=== PATIENT | female | born 1955 | race American Indian/Alaskan Native ===

== ENCOUNTER 2019-04-26 08:23 | Emergency (ER) | payer MEDICARE ==
[2019-04-26] MEDS ORDERED: ONDANSETRON 4 MG/2 ML INJ IV ONE (08:43)
[2019-04-26] MEDS ORDERED: SODIUM CHLORIDE 0.9% 1000 ML 1,000 ML IV ONE (08:43)
[2019-04-26] MEDS ORDERED: MORPHINE 4 MG/1 ML INJ IV ONE (08:43)
[2019-04-26] MEDS ORDERED: FAMOTIDINE 20 MG/2 ML INJ IV ONE (08:43)
--- NOTE | 2019-04-26 08:47 | Emergency Department Report ---
ED N/V/D HPI - General Chief complaint: Nausea/Vomiting/Diarrhea Stated complaint: NAUSEA/VOMITIMG Time Seen by Provider: 04/26/19 08:27 Source: EMS Mode of arrival: Stretcher Limitations: No Limitations - History of Present Illness Initial comments: 63-year-old female the past medical history of possible Crohn's disease and arthritis presents to the hospital complaining of nausea, vomiting, diarrhea, epigastric pain since 6 PM yesterday. Patient states she has a history of frequent episodes of the same over a 10 year period that occur every 2-3 weeks. The last few months patient states she hasn't had any GI symptoms until last night. Her workup in the past suggested that she might have possible Crohn's the patient is unsure if this is a definitive diagnosis. She denies melena, hematochezia, hematemesis, or fever. Previous surgical history includes hysterectomy. - Related Data Home Medications Medication Instructions Recorded Confirmed Last Taken Progesterone 04/26/19 04/24/19 Previous Rx's Medication Instructions Recorded Last Taken Type Amlodipine Besylate [Norvasc] 5 mg PO DAILY #30 tablet 04/26/19 Unknown Rx Famotidine [Pepcid] 20 mg PO BID #30 tablet 04/26/19 Unknown Rx Ondansetron [Zofran Odt] 4 mg PO Q8HR PRN #20 tab.rapdis 04/26/19 Unknown Rx traMADoL [Ultram 50 MG tab] 50 mg PO Q6HR PRN #16 tablet 04/26/19 Unknown Rx Allergies Allergy/AdvReac Type Severity Reaction Status Date / Time No Known Allergies Allergy Verified 04/26/19 08:52 ED Review of Systems ROS: Stated complaint: NAUSEA/VOMITIMG Other details as noted in HPI Comment: All other systems reviewed and negative ED Past Medical Hx - Past Medical History Previous Medical History?: Yes Hx Psychiatric Treatment: Yes (Anxiety) Additional medical history: Cronh's disease - Surgical History Past Surgical History?: Yes Additional Surgical History: Hysterectomy - Medications Home Medications: Home Medications Medication Instructions Recorded Confirmed Last Taken Type Amlodipine Besylate [Norvasc] 5 mg PO DAILY #30 tablet 04/26/19 Unknown Rx Famotidine [Pepcid] 20 mg PO BID #30 tablet 04/26/19 Unknown Rx Ondansetron [Zofran Odt] 4 mg PO Q8HR PRN #20 tab.rapdis 04/26/19 Unknown Rx Progesterone 04/26/19 04/24/19 History traMADoL [Ultram 50 MG tab] 50 mg PO Q6HR PRN #16 tablet 04/26/19 Unknown Rx ED Physical Exam - General Limitations: No Limitations - Other Other exam information: General: No acute distress Head: Atraumatic Eyes: normal appearance ENT: Moist mucous membranes Neck: Normal appearance, no midline tenderness Chest: Clear to auscultation bilaterally CV: Regular rate and rhythm Abdomen: Soft, normal bowel sounds, mild epigastric tenderness, nondistended, no rebound or guarding Back: Normal inspection Extremity: Normal inspection infection, full range of motion Neuro: Alert O x 3, no facial asymmetry, speech clear, no gross motor sensory deficit Psych: Appropriate behavior Skin: No rash ED Course Vital Signs 04/26/19 04/26/19 04/26/19 08:40 09:00 09:30 Temperature 98.4 F Pulse Rate 64 56 L 57 L Respiratory 13 19 18 Rate Blood Pressure 174/95 194/92 Blood Pressure 162/114 [Right] O2 Sat by Pulse 100 100 Oximetry 04/26/19 04/26/19 04/26/19 10:00 10:30 11:00 Temperature Pulse Rate 52 L 61 55 L Respiratory 18 9 L 12 Rate Blood Pressure 202/117 198/114 192/112 Blood Pressure [Right] O2 Sat by Pulse 97 95 100 Oximetry 04/26/19 04/26/19 04/26/19 11:17 11:30 11:49 Temperature Pulse Rate 56 L 77 78 Respiratory 12 Rate Blood Pressure 192/112 134/88 Blood Pressure 124/77 [Right] O2 Sat by Pulse 97 98 Oximetry 04/26/19 04/26/19 12:00 12:30 Temperature Pulse Rate 84 95 H Respiratory 18 16 Rate Blood Pressure 115/69 108/75 Blood Pressure [Right] O2 Sat by Pulse 100 Oximetry ED Medical Decision Making - Lab Data Result diagrams: 04/26/19 08:49 04/26/19 08:49 Lab Results 04/26/19 04/26/19 04/26/19 Range/Units 08:49 08:49 08:49 WBC 8.0 (4.5-11.0) K/mm3 RBC 4.41 (3.65-5.03) M/mm3 Hgb 14.1 (10.1-14.3) gm/dl Hct 42.3 (30.3-42.9) % MCV 96 (79-97) fl MCH 32 (28-32) pg MCHC 34 (30-34) % RDW 13.7 (13.2-15.2) % Plt Count 199 (140-440) K/mm3 Lymph % (Auto) 6.7 L (13.4-35.0) % Rich % (Auto) 3.2 (0.0-7.3) % Eos % (Auto) 0.1 (0.0-4.3) % Baso % (Auto) 0.4 (0.0-1.8) % Lymph # 0.5 L (1.2-5.4) K/mm3 Rich # 0.3 (0.0-0.8) K/mm3 Eos # 0.0 (0.0-0.4) K/mm3 Baso # 0.0 (0.0-0.1) K/mm3 Seg Neutrophils % 89.6 H (40.0-70.0) % Seg Neutrophils # 7.2 (1.8-7.7) K/mm3 Sodium 142 (137-145) mmol/L Potassium 3.4 L (3.6-5.0) mmol/L Chloride 101.6 (98-107) mmol/L Carbon Dioxide 20 L (22-30) mmol/L Anion Gap 24 mmol/L BUN 12 (7-17) mg/dL Creatinine 0.9 (0.7-1.2) mg/dL Estimated GFR > 60 ml/min BUN/Creatinine Ratio 13 % Glucose 117 H (65-100) mg/dL Calcium 9.5 (8.4-10.2) mg/dL Magnesium 2.00 (1.7-2.3) mg/dL Total Bilirubin 0.40 (0.1-1.2) mg/dL AST 15 (5-40) units/L ALT 9 (7-56) units/L Alkaline Phosphatase 61 (35-129) units/L Troponin T (0.00-0.029) ng/mL Total Protein 8.4 H (6.3-8.2) g/dL Albumin 4.6 (3.9-5) g/dL Albumin/Globulin Ratio 1.2 % Lipase 21 (13-60) units/L Urine Color (Yellow) Urine Turbidity (Clear) Urine pH (5.0-7.0) Ur Specific [place] (1.003-1.030) Urine Protein (Negative) mg/dL Urine Glucose (UA) (Negative) mg/dL Urine Ketones (Negative) mg/dL Urine Blood (Negative) Urine Nitrite (Negative) Urine Bilirubin (Negative) Urine Urobilinogen (<2.0) mg/dL Ur Leukocyte Esterase (Negative) Urine WBC (Auto) (0.0-6.0) /HPF Urine RBC (Auto) (0.0-6.0) /HPF U Epithel Cells (Auto) (0-13.0) /HPF Amorphous Crystals Urine Mucus /HPF 04/26/19 04/26/19 Range/Units 09:45 13:48 WBC (4.5-11.0) K/mm3 RBC (3.65-5.03) M/mm3 Hgb (10.1-14.3) gm/dl Hct (30.3-42.9) % MCV (79-97) fl MCH (28-32) pg MCHC (30-34) % RDW (13.2-15.2) % Plt Count (140-440) K/mm3 Lymph % (Auto) (13.4-35.0) % Rich % (Auto) (0.0-7.3) % Eos % (Auto) (0.0-4.3) % Baso % (Auto) (0.0-1.8) % Lymph # (1.2-5.4) K/mm3 Rich # (0.0-0.8) K/mm3 Eos # (0.0-0.4) K/mm3 Baso # (0.0-0.1) K/mm3 Seg Neutrophils % (40.0-70.0) % Seg Neutrophils # (1.8-7.7) K/mm3 Sodium (137-145) mmol/L Potassium (3.6-5.0) mmol/L Chloride (98-107) mmol/L Carbon Dioxide (22-30) mmol/L Anion Gap mmol/L BUN (7-17) mg/dL Creatinine (0.7-1.2) mg/dL Estimated GFR ml/min BUN/Creatinine Ratio % Glucose (65-100) mg/dL Calcium (8.4-10.2) mg/dL Magnesium (1.7-2.3) mg/dL Total Bilirubin (0.1-1.2) mg/dL AST (5-40) units/L ALT (7-56) units/L Alkaline Phosphatase (35-129) units/L Troponin T < 0.010 (0.00-0.029) ng/mL Total Protein (6.3-8.2) g/dL Albumin (3.9-5) g/dL Albumin/Globulin Ratio % Lipase (13-60) units/L Urine Color Yellow (Yellow) Urine Turbidity Slightly-cloudy (Clear) Urine pH 9.0 H (5.0-7.0) Ur Specific [place] 1.015 (1.003-1.030) Urine Protein <15 mg/dl (Negative) mg/dL Urine Glucose (UA) Neg (Negative) mg/dL Urine Ketones Neg (Negative) mg/dL Urine Blood Neg (Negative) Urine Nitrite Neg (Negative) Urine Bilirubin Neg (Negative) Urine Urobilinogen < 2.0 (<2.0) mg/dL Ur Leukocyte Esterase Neg (Negative) Urine WBC (Auto) 2.0 (0.0-6.0) /HPF Urine RBC (Auto) 1.0 (0.0-6.0) /HPF U Epithel Cells (Auto) 1.0 (0-13.0) /HPF Amorphous Crystals Few Urine Mucus Few /HPF - EKG Data -: EKG Interpreted by Tx EKG shows normal: sinus rhythm, ST-T waves (t inv v4-v5) Rate: normal (67) - EKG Data When compared to previous EKG there are: previous EKG unavailable - Radiology Data Radiology results: report reviewed CT abdomen and pelvis with IV contrast. No acute abdominal or pelvic abnormality. Small left ovarian cyst. Nonspecific mild groundglass opacity in the right middle and lower lobe. - Medical Decision Making Symptoms improved ED treatment including pain medication, nausea medication and IV fluids. Patient given by mouth potassium for mild hypokalemia and tolerated by mouth intake. There are some nonspecific T-wave abnormalities identified on EKG without previous for comparison. Troponin negative. Patient noted to have elevated blood pressure but denies previous history but states when she is in pain intensity be elevated. Patient did require hydralazine for blood pressure reduction in the ED. She is started on Norvasc 5 mg in addition to medication for symptomatic treatment of nausea, vomiting, and diarrhea which appears to be recurrent. Outpatient follow-up with PMD and GI advised - Differential Diagnosis gastroenteritis, diverticulitis, appendicitis, inflammatory bowel disease Critical Care Time: No Critical care attestation.: If time is entered above; I have spent that time in minutes in the direct care of this critically ill patient, excluding procedure time. ED Disposition Clinical Impression: Gastroenteritis, HTN (hypertension) Disposition: TO HOME OR SELFCARE Is pt being admited?: No Does the pt Need Aspirin: No Condition: Stable Instructions: Gastroenteritis (ED), Hypertension (ED) Additional Instructions: Take the medication as prescribed. Follow-up with your doctor or doctor/clinic provided. Return if symptoms worsen as indicated by your discharge instructions. Prescriptions: Amlodipine Besylate [Norvasc] 5 mg PO DAILY #30 tablet Famotidine [Pepcid] 20 mg PO BID #30 tablet traMADoL [Ultram 50 MG tab] 50 mg PO Q6HR PRN #16 tablet PRN Reason: Pain Ondansetron [Zofran Odt] 4 mg PO Q8HR PRN #20 tab.rapdis PRN Reason: Nausea And Vomiting Referrals: PRIMARY CAREMD [Primary Care Provider] - 3-5 Days DAVON WILLIAM MD [Staff Physician] - 3-5 Days [facility] [Provider Group] - 3-5 Days [facility] [Provider Group] - 3-5 Days Time of Disposition: 15:05
[2019-04-26 09:27] LABS: Basophils % (Auto) 0.4 % (0.0-1.8); Eosinophils % (Auto) 0.1 % (0.0-4.3); Hematocrit 42.3 % (30.3-42.9); Hemoglobin 14.1 gm/dl (10.1-14.3); Lymphocytes # (Auto) 0.5 K/mm3 (1.2-5.4); Lymphocytes % (Auto) 6.7 % (13.4-35.0); Mean Corpuscular HGB Conc 34 % (30-34); Mean Corpuscular Volume 96 fl (79-97); Monocytes # (Auto) 0.3 K/mm3 (0.0-0.8); Monocytes % (Auto) 3.2 % (0.0-7.3); Red Blood Count 4.41 M/mm3 (3.65-5.03); Red Cell Distribution Width 13.7 % (13.2-15.2)
[2019-04-26 09:33] LABS: Platelet Count 199 K/mm3 (140-440)
[2019-04-26 09:54] LABS: Alanine Aminotransferase 9 units/L (7-56); Albumin 4.6 g/dL (3.9-5); BUN/Creatinine Ratio 13; Blood Urea Nitrogen 12 mg/dL (7-17); Calcium 9.5 mg/dL (8.4-10.2); Hemolysis Index 9
[2019-04-26 10:28] LABS: Amorphous Crystals,Urine Few; Bilirubin,Urine NEG (Negative); Blood,Urine NEG (Negative); Color,Urine Yellow (Yellow); Mucus,Urine FEW /HPF; Protein,Urine <15 mg/dL mg/dL (Negative); Urobilinogen,Urine < 2.0 mg/dL (<2.0)
[2019-04-26] MEDS ORDERED: hydrALAZINE 20 MG/1 ML INJ IV ONE (11:12)
--- NOTE | 2019-04-26 11:31 | Cat Scan Report ---
CT abdomen pelvis w con INDICATION / CLINICAL INFORMATION: epigastric pain n,v,d chrons. TECHNIQUE: All CT scans at this location are performed using CT dose reduction for ALARA by means of automated e xposure control. COMPARISON: None available. FINDINGS: Mild patchy groundglass opacities are identified in the right lower lobe and right middle lobe. ABDOMEN: Multiple hepatic cysts. The gallbladder, spleen and pancreas are normal. No hydronephrosis. Small renal cysts are identified bilaterally. No evidence of aortoiliac aneurysm. No retroperitoneal adenopathy. Adrenal glands are normal. Pelvis: The appendix is normal. No acute inflammatory changes or dependent fluid collections are identified in the pelvis. No acute colon abnormality. A 2 cm left ovarian cyst is identified. Degenerative changes are seen at the L5-S1 level. IMPRESSION: 1. No acute abdominal or pelvic abnormality. 2. Small left ovarian cyst. 3. Nonspecific, mild groundglass opacity in the right middle lobe and right lower lobe. Signer Name: Wilfredo Crespo MD Signed: 04/26/2019 11:27 AM Workstation Name: [id number]
[2019-04-26] MEDS ORDERED: POTASSIUM CHLORIDE ER 20 MEQ TAB PO ONE (11:42)
[2019-04-26] MEDS ORDERED: METOCLOPRAMIDE 10 MG/2 ML INJ IV ONE (12:10)
[2019-04-26] MEDS ORDERED: HYDROmorphone 1 MG/1 ML INJ IV ONE (12:10)
[2019-04-26] MEDS ORDERED: diphenhydrAMINE 50 MG/ML VIAL IV ONE (12:10)
[2019-04-26 16:12] VITALS: BP 122/68
== END 2019-04-26 15:31 | disposition home or self-care (01) ==
LOC: ED 08:23
DX: K52.9 Noninfective gastroenteritis and colitis, unspecified (principal); I10 Essential (primary) hypertension; F41.9 Anxiety disorder, unspecified; Z90.710 Acquired absence of both cervix and uterus; Z79.899 Other long term (current) drug therapy
CPT/HCPCS: 36415; 74177; 80053; 81001; 83690; 83735; 84484; 85025; 93005; 93010; 96361; 96374; 96375; 99284; J0360; J1170; J1200; J2270; J2405; J2765; J7030; Q9967